=== PATIENT | female | born 1940 | race Caucasian/White ===

== ENCOUNTER → 2019-02-14 08:01 | Outpatient (CLI) | payer MEDICARE, BC ==
[~2019-02-14 08:01] MED LIST: AMBIEN10 MG PO; AZULFIDINE500 MG PO; BAYER CHEWABLE81 MG PO; CALCIUM 250+D T1 TAB PO; FOLIC ACID1 MG PO; METHOTREXATE2.5 MG; PLAVIX75 MG PO; ZANTAC300 MG PO; ZYRTEC10 MG PO
[2019-03-05 12:51] VITALS: BMI 20.5
== END | disposition home or self-care (01) ==
LOC: D.HCCARDIO 08:01
PROVIDERS: ATTEND Internal Medicine Cardiovascular Disease
DX: I20.9 Angina pectoris, unspecified (principal)

== ENCOUNTER 2019-03-05 12:08 | Outpatient (CLI) | payer MEDICARE, BC ==
[~2019-03-05] VITALS: Ht 180.3 cm; Wt 66.8 kg
--- NOTE | ~2019-03-05 | HEMODYNAMI ---
PATIENT:ALDO SIMS MEDICAL RECORD: [id number] : 38 LOCATION:[facility] ADMISSION DATE: 03/05/19 Generatedon:03/05/201915:21 Patient name: ALDO SIMS Patient #: [id number] SSN: D OB: 1940 Date of study: 03/05/2019 Page: Of Hemodynamic Procedure Report Patient Data Patient Demographics Procedure consent was obtained First Name: ALDO Gender: Female Last Name: LEVI : 1940 [facility] Initial: PEDRO PABLO Age: 78 year(s) Patient #: [id number] Race: Unknown Additional ID: [id number] Contact details Address: [facility] [address] State: [place] City: [place] Zip code: [address] Past Medical History Allergies Allergen Reaction Date Comments Reported Penicillins 03/05/2019 Admission Admission Data Admission Date: 03/05/2019 Admission Time: 12:08 Weight (lbs.): 143 Weight (kg.): 64.86 Lab Results Lab Result Date: 03/05/2019 Lab Result Time: 12:45 Biochemistry Name Units Result Min Max BUN mg/dl 18 --(---*)-- 7 18 Creatinine mg/dl 1 --(--*-)-- 0.6 1.3 CBC Name Units Result Min Max Hematocrit % 38.1 *-(----)-- 42 54 Hemoglobin g/dl 12.9 -*(----)-- 13.5 17.5 Procedure Procedure Types Cath Procedure Diagnostic Procedure LHC LH w/Coronaries Sedation Charges Moderate Sedation up to 15 minutes PCI Procedure Coronary Stent Coronary Stent Initial Procedure Description Procedure Date Procedure Date: 03/05/2019 Procedure Start Time: 14:49 Procedure End Time: 15:19 Procedure Staff Name Function Shawn Martinez MD Performing Physician Terrell Kelly RT Monitor Minerva Siegel RT Scrub Tammie Obregon RN Nurse Procedure Data Cath Procedure Fluoroscopy Diagnostic fluoroscopy Total fluoroscopy Time: 3.6 time: 3.6 min min Diagnostic fluoroscopy Total fluoroscopy dose: 331 dose: 331 mGy mGy Contrast Material Contrast Material Type Amount (ml) Isovue 300 74 Entry Location Entry Primary Successful Side Size Upsize Upsize Entry Closure Succes sful Closure Location (Fr) 1 (Fr) 2 (Fr) Remarks Device Remarks Femoral Right 5 Fr 6 Fr Exoseal artery Short Estimated blood loss: 10 ml Diagnostic catheters Device Type Used For End Catheter Placement MULTIPACK JL 4.0 5Fr Procedure catheter MULTIPACK 3DRC 5Fr Procedure catheter DIAGNOSTIC AL1 5Fr Procedure catheter ([id number]) MULTIPACK Pigtail 5 Fr Procedure catheter Procedure Complications No complications Procedure Medications Medication Administration Route Dosage Oxygen etCO2 Nasal cannula 2 l/min Lidocaine 2% added to field 20 Heparin Flush Bag added to field 2 bags (1000units/500ml NS) 0.9% NaCl I.V. 100 ml/hr Versed I.V. 1 mg Fentanyl I.V. 50 mcg Versed I.V. 1 mg Fentanyl I.V. 50 mcg Versed I.V. 1 mg Heparin Bolus I.V. 7000 units Plavix P.O. 600 mg Hemodynamics Rest HGB: 12.9 (g/dl) Heart Rate: 79 (bpm) Pressure Samples Time Site Value (mmHg) Purpose Heart Use Rate(bpm) 14:59 LV 160/-13,9 Snapshot 94 15:00 AO 145/59(96) Pullback 77 15:00 LV 153/-4,9 Pullback 77 Gradients Valve Time Site 1 Site 2 Mean SEP/DFP Peak To Heart Use (mmHg) (sec/min) Peak Rate (mmHg) (bpm) Aortic 15:00 LV AO 6 23 8 77 153/-4,9 145/59(96) Calculations Valve P-P Mean Valve Index Valve Source Name Gradient Area Flow (cm2) Aortic 8 6 8 6 Snapshots Pre Cath Intra NCS Post Cath Vital Signs Time Heart Resp SPO2 etCO2 NIBP (mmHg) Rhythm Pain Sedation Rate (ipm) (%) (mmHg) Status Level (bpm) 14:40:40 81 36 100 0 165/82(120) NSR 0 (11) 10(A) , No pain 14:45:02 79 24 100 33.4 145/77(112) NSR 0 (11) 10(A) , No pain 14:49:24 71 18 100 34.1 131/73(102) NSR 0 (11) 10(A) , No pain 14:54:39 71 14 99 35.6 137/68(110) NSR 0 (11) 10(A) , No pain 14:58:59 73 12 98 37.1 137/73(96) NSR 0 (11) 10(A) , No pain 15:03:17 75 15 98 36.4 130/66(100) NSR 0 (11) 9(A) , No pain 15:07:31 74 11 98 35.6 134/72(115) NSR 0 (11) 9(A) , No pain 15:11:47 73 24 97 41.6 148/78(102) NSR 0 (11) 10(A) , No pain 15:16:10 71 17 96 33.4 154/75(133) NSR 0 (11) 10(A) , No pain Medications Time Medication Route Dose Verified Delivered Reason Notes Effectiveness by by 14:38:59 Oxygen etCO2 2 Shawn Buffie used for Nasal l/min Juan Obregon RN procedure cannula 14:39:06 Lidocaine 2% added 20ml Shawn Shawn for local to vial Juan Martinez MD anesthetic field 14:39:12 Heparin Flush added 2 Shawn Shawn used for Bag to bags Juan Martinez MD procedure (1000units/500ml field NS) 14:39:20 0.9% NaCl I.V. 100 Shawn Buffie Per physician ml/hr Juan Obregon RN 14:48:54 Versed I.V. 1 mg Shawn Buffie for sedation Juan Obregon RN 14:48:59 Fentanyl I.V. 50 Shawn Buffie for sedation mcg Juan Obregon RN 14:53:14 Versed I.V. 1 mg Shawn Buffie for sedation Juan Obregon RN 14:53:17 Fentanyl I.V. 50 Shawn Buffie for sedation mcg Juan Obregon RN 14:58:36 Versed I.V. 1 mg Shawn Buffie for sedation Juan Obregon RN 15:03:44 Heparin Bolus I.V. 7000 Shawn Buffie for verif ied units Juan Obregon RN anticoagulation with dr martinez 15:13:40 Plavix P.O. 600 Shawn Buffie for mg Juan Obregon RN antiplatelet therapy Procedure Log Time Note 14:20:12 Terrell Kelly RT(R) sent for patient. Start room use. 14:28:19 Signed procedure consent form obtained from patient. 14:28:20 Diagnostic Cath status Elective 14::22 Time tracking: Regular hours (M-F 7:00 - 5:00) 14:28:26 Plan of Care:Hemodynamics will remain stable., Cardiac rhythm will remain stable., Comfort level will be maintained., Respiratory function will remain adequate., Patient/ family verbilizes understanding of procedure., Procedure tolerated without complication., Recovers from procedure without complications.. 14:28:34 H&P Date Dictated: 02/04/2019 Within 30 days and on chart., H&P Addendum completed by physician on day of procedure. (MUST COMPLETE FOR ALL OUTPATIENTS). 14:28:39 Patient allergic to Penicillins 14:28:50 Patient Weight : 143 lbs 14:30:36 Patient received from Pre/Post Procedure Room to CCL 1 Alert and oriented. Tansferred to table in Supine position. 14:30:37 Warm blankets applied, and gera hugger turned on for patient comfort. 14:30:37 Correct patient and procedure confirmed by team. 14:30:38 ECG and BP/O2 sat monitors applied to patient. 14:38:59 Oxygen 2 l/min etCO2 Nasal cannula was administered by Tammie Obregon RN; used for procedure; 14:39:06 Lidocaine 2% 20ml vial added to field was administered by Shawn Martinez MD; for local anesthetic; 14:39:12 Heparin Flush Bag (1000units/500ml NS) 2 bags added to field was administered by Shawn Martinez MD; used for procedure; 14:39:20 0.9% NaCl 100 ml/hr I.V. was administered by Tammie Obregon RN; Per physician; 14:39:26 Vital chart was started 14:43:28 Baseline sample Acquired. 14:44:02 Rhythm: sinus rhythm 14:44:41 Full Disclosure recording started 14:44:43 Pre-procedure instructions explained to patient. 14:44:43 Pre-op teaching completed and patient verbalized understanding. 14:44:45 Family in waiting room. 14:44:46 Patient NPO since Midnight. 14:44:48 Is the patient allergic to Iodine/contrast media? No. 14:44:49 Is patient on blood thinner?No 14:44:50 Patient diabetic? No. 14:44:53 Previous problem with sedation/anesthesia? No . 14:44:54 Snore? Yes 14:44:55 Sleep apnea? No 14:44:56 Deviated septum? No 14:44:57 Opens mouth fully? Yes 14:44:58 Sticks out tongue? Yes 14:44:59 Airway obstruction? No ? 14:45:01 Dentures? No ? 14:45:04 Pre procedure: right dorsailis pedis pulse 2+ Normal; easily identifiable; not easily obliterated 14:45:05 Patient pain scale 0/10 ?. 14:45:13 IV patent on arrival in left forearm with 0.9% NaCl at [facility]. 14:46:13 Lab Result : BUN 18 mg/dl 14:46:13 Lab Result : Creatinine 1 mg/dl 14:46:13 Lab Result : Hemoglobin 12.9 g/dl 14:46:13 Lab Result : Hematocrit 38.1 % 14:46:15 Lab results completed and on chart. 14:46:17 Right groin area was prepped with chlora-prep and draped in sterile fashion 14:46:18 Alarms reviewed by R. N. 14:46:19 Sharps counted by scrub and verified by R.N. 14:46:27 Use device set Femoral Dx 14:46:28 ACIST Syringe (06386) opened to sterile field. 14:46:28 Bag Decanter (2002S) opened to sterile field. 14:46:29 Medline Cath Pack ([id number]) opened to sterile field. 14:46:30 ACIST Hand Control (29264) opened to sterile field. 14:46:30 ACIST Manifold (56392) opened to sterile field. 14:46:31 Tegaderm 4 x 4 (1626W) opened to sterile field. 14:46:32 SHEATH 5FR Friendship (RVR969) opened to sterile field. 14:46:33 DIAGNOSTIC Multipack 5Fr catheter set ([id number]) opened to sterile field. 14:46:33 DIAGNOSTIC WIRE .035 260cm J wire (714287) opened to sterile field. 14:46:40 Physician arrived 14:46:44 --------ALL STOP TIME OUT------ 14:46:44 Final Timeout: patient, procedure, and site verified with staff and physician. All members of the team are in agreement. 14:46:49 Right groin site verified by team. 14:46:52 Maximum allowable Isovue 300 dose 300ml. Physician notified. (300ml for normal creatinines. For patients with creatinine of 1.7 or higher multiply weight(kg) x 5 divided by creatinine.) 14:46:55 Fire Safety Assessment: A--An alcohol-based skin anteseptic being used preoperatively., C--Open oxygen or nitrous oxide is being used., D--An ESU, laser, or fiber-optic light is being used. 14:46:58 Physical assessment completed. ASA score P 2 - A patient with mild systemic disease as per Shawn Martinez MD. 14:47:00 Sedation plan: IV Moderate Sedation Medication:Versed, Fentanyl 14:48:54 Versed 1 mg I.V. was administered by Tammie Obregon RN; for sedation; 14:48:59 Fentanyl 50 mcg I.V. was administered by Tammie Obregon RN; for sedation; 14:49:20 Zero performed for pressure channel P1 14:49:55 Procedure started. 14:49:57 Local anesthetic to right femoral artery with Lidocaine 2% by Shawn Martinez MD.INITIAL ACCESS ONLY 14:50:51 A 5 Fr sheath was inserted into the Right Femoral artery 14:51:18 A MULTIPACK JL 4.0 5Fr catheter was advanced over the wire and used for Procedure. 14:51:39 LCA angiography performed. 14:52:51 Catheter exchanged over wire. 14:53:14 Versed 1 mg I.V. was administered by Tammie Obregon RN; for sedation; 14:53:17 Fentanyl 50 mcg I.V. was administered by Tammie Obregon RN; for sedation; 14:53:36 A MULTIPACK 3DRC 5Fr catheter was advanced over the wire and used for Procedure. 14:54:12 Catheter removed. unable to cannulate vessel. 14:55:04 A DIAGNOSTIC AL1 5Fr catheter ([id number]) was advanced over the wire and used for Procedure. 14:55:48 RCA angiography performed. 14:57:08 Catheter exchanged over wire. 14:57:13 A MULTIPACK Pigtail 5 Fr catheter was advanced over the wire and used for Procedure. 14:58:36 Versed 1 mg I.V. was administered by Tammie Obregon RN; for sedation; 14:59:35 LV hemodynamics recorded. 14:59:36 LV gram done using RODRIGUEZ 14:59:39 Injector settings: Ml/sec: 10, Volume: 20, 14:59:46 EF : 55 % 15:00:14 TUBING High Pressure Extension Tubing (Juan) ([id number]) opened to sterile field. 15:00:15 BMW 300cm [place] 2 J wire ([id number]) opened to sterile field. 15:00:17 INFLATOR Merit BasixCompak (ZH4609) opened to sterile field. 15:00:18 SHEATH 6FR Friendship (EPU139) opened to sterile field. 15:01:41 GUIDE 6FR XBLAD 3.5 catheter ([id number]) opened to sterile field. 15:01:47 Catheter removed. 15:02:06 Sheath upsized to a 6 Fr Short. 15:02:10 6 Fr xblad 3.5 guide catheter was inserted over the wire 15:02:35 BMW wire advanced. 15:02:49 Pre PCI Site: [place] pLAD has 75% stenosis. 15:03:44 Heparin Bolus 7000 units I.V. was administered by Tammie Obregon RN; for anticoagulation; verified with dr martinez 15:06:08 Wire advanced across lesion. 15:09:27 Place stent Inflation Number: 1 A INTEGRITY OTW 3.0 X 18 stent ([id number]) was prepped and advanced across the Prox LAD . The stent was deployed at 14 MARISA for 0:10 (min:sec) . 15:09:37 Stent catheter was removed intact over wire. 15:09:38 Wire removed. 15:09:39 Guide catheter removed. 15:09:45 EXOSEAL 6Fr (EX600) opened to sterile field. 15:11:28 Sheath removed intact; hemostasis achieved with Exoseal to the Right Femoral artery. 15:11:30 Procedure ended.(Physican Out) 15:13:40 Plavix 600 mg P.O. was administered by Tammie Obregon RN; for antiplatelet therapy; 15:15:13 Post PCI Site: [place] pLAD has 0% stenosis. 15:15:26 Fluoroscopy time 03.60 minutes. 15:15:30 Fluoroscopy dose: 331 mGy 15:15:30 Flurop Dose total: 331 15:15:35 Contrast amount:Isovue 300 74ml. 15:15:37 Sharps counted by scrub and verified by R.N. 15:15:39 Insertion/operative site no bleeding no hematoma. 15:15:42 Post-op/insertion site Right Femoral artery dressed using a 4 x 4 and Tegaderm. 15:15:47 Post right femoral artery:stable, soft, clean and dry 15:15:49 Post Procedure Pulses reassessed and unchanged 15:15:51 Post-procedure physical assessment completed. ASA score P 2 - A patient with mild systemic disease as per Shawn Martinez MD. 15:15:54 Post procedure rhythm: unchanged. 15:16:04 Estimated blood loss: 10 ml 15:16:05 Post procedure instruction explained to patient.Patient verbalizes understanding. 15:16:06 Patient needs reinforcement of post procedure teaching. 15:16:27 Procedure type changed to Cath procedure, Diagnostic procedure, LHC, LHC w/Coronaries, Sedation Charges, Moderate Sedation up to 15 minutes, PCI procedure, Coronary Stent, Coronary Stent Initial 15:17:23 Procedure and supply charges have been captured, reviewed, submitted and are correct. 15:17:25 Procedure Complication : No complications 15:17:27 Vital chart was stopped 15:17:28 See physician's report for complete and final results. 15:17:44 Report given to PCU. 15:19:02 Patient transfered to Pre/Post Procedure Room with Stretcher. 15:19:03 Procedure ended. 15:19:03 Full Disclosure recording stopped 15:19:07 End room use (Document Last) Intervention Summary Intervention Notes Time ActionType Lesion and Equipment Action# Pressure Duration Attributes Used 15:09:27 Place stent Prox LAD INTEGRITY 1 14 00:10 OTW 3.0 X 18 stent ([id number]) Device Usage Item Name Manufacture Quantity Catalog Hospital Part Current Minimal L ot# / Number Charge Number Stock Stock Serial# Code ACROBERTA Davisist 1 87722 245313 468269 592120 20 Syringe Zebra Imaging (34361) Systems Inc Bag Microtek 1 933400 16386 767433 5 Decanter Medical Inc. () Medline Medline 1 [id number] 451426 16323 594716 5 Cath Pack ([id number]) ACIST Hand Acist 1 31122 830520 660102 866521 5 Control Medical (85343) Systems Inc ACIST Acist 1 88189 518383 344996 543190 5 Manifold Medical (32178) Systems Inc Tegaderm 4 3M 1 1626W 692951 616645 901101 5 x 4 (1626W) SHEATH 5FR Terumo 1 FGQ258 136096 247196 684121 5 Friendship (FNH462) DIAGNOSTIC Cardinal 1 EV8646 369869 40525 583945 30 Multipack Health 5Fr catheter set (PO6448) DIAGNOSTIC St Santi 1 031268 715069 364879 110152 30 WIRE .035 260cm J wire (415359) MULTIPACK Cardinal 1 564727 5 JL 4.0 5Fr Health catheter MULTIPACK Cardinal 1 486160 5 3DRC 5Fr Health catheter DIAGNOSTIC Cardinal 1 [id number] 266119 008524 829815 15 AL1 5Fr Health catheter (924161G) MULTIPACK Cardinal 1 833950 5 Pigtail 5 Health Fr catheter TUBING High Merit 1 [id number] 613110 88916 218991 10 Pressure Medical Extension Tubing (Martinez) (CX3046J) BMW 300cm Pacehco 1 [id number] 202662 523241 981290 5 [place] 2 Vascular J wire (5839459R) INFLATOR Merit 1 JQ9726 143788 136570 514706 15 [facility] Medical BasixCompak (AE5777) SHEATH 6FR Terumo 1 KMB747 781927 850718 606194 40 Friendship (KTQ221) GUIDE 6FR Cardinal 1 [id number] 151762 449335 544868 10 XBLAD 3.5 Health catheter ([id number]) INTEGRITY Medtronic 1 [id number] 456848 627466 831750 1 0 [id number] OTW 3.0 X 18 stent ([id number]) EXOSEAL 6Fr Cardinal 1 EX600 269344 162195 011701 10 (EX600) Health Signature Audit [place] Stage Time Signature Unsigned Intra-Procedure 03/05/2019 Terrell Kelly 3:21:03 PM RT(R) Signatures Monitor : Terrell Kelly RT Signature : Date : Time : [address] [place] [address]
[2019-03-05] MEDS ORDERED: AMBIEN10 MG PO (12:35)
[2019-03-05] MEDS ORDERED: FOLIC ACID1 MG PO (12:35)
[2019-03-05] MEDS ORDERED: METHOTREXATE2.5 MG (12:36)
[2019-03-05] MEDS ORDERED: AZULFIDINE500 MG PO (12:36)
[2019-03-05] MEDS ORDERED: CALCIUM 250+D T1 TAB PO (12:37)
[2019-03-05] MEDS ORDERED: ZANTAC300 MG PO (12:37)
[2019-03-05] MEDS ORDERED: ZYRTEC10 MG PO (12:37)
[2019-03-05 12:50] LABS: BASOPHILS 0.2 % (0-2); EOSINOPHILS 0.5 % (0-7); HEMATOCRIT 38.1 % (36.0-48.0); HEMOGLOBIN 12.9 g/dL (12-16); IMMATURE GRANULOCYTES 0.2 % (0-5); LYMPHOCYTES 17.6 % (15-50); MCH 33.9 pg (26.0-34.0); MCHC 33.9 g/dL (31.0-37.0); MEAN PLATELET VOLUME 10.2 fL (7.4-10.4); MONOCYTES 11.2 % (2-11); NEUTROPHILS 70.3 % (40-80); PLATELET COUNT 254 10x3/uL (130-400); RBC 3.81 10x6/uL (4.00-5.40); RDW 13.3 % (11.5-14.5)
[2019-03-05 12:51] VITALS: BP 174/78; Ht 180.3 cm; Wt 66.8 kg
[2019-03-05 13:08] LABS: ANION GAP 13.5 mmol/L (8-16); CALCIUM 9.3 mg/dL (8.5-10.1); CARBON DIOXIDE 27.6 mmol/L (21.0-32.0); POTASSIUM - SERUM 4.1 mmol/L (3.5-5.1)
--- NOTE | 2019-03-05 15:26 | NUR ---
PT ARRIVED BY STRETCHER. PLACED ON MONITORS. ASSESSMENT COMPLETED. FAMILY AT BEDSIDE. CALL LIGHT WITHIN REACH. PT INSTRUCTED TO KEEP HEAD FLAT ON PILLOW AND RIGHT LEG STRAIGHT.
[2019-03-05] MEDS ORDERED: PLAVIX75 MG PO (15:30)
[2019-03-05] MEDS ORDERED: BAYER CHEWABLE81 MG PO (15:30)
--- NOTE | 2019-03-05 15:40 | NUR ---
RIGHT GROIN DRESSING C/D/I. NO S/S OF HEMATOMA NOTED. VSS. DENIES PAIN/NAUSEA AT THIS TIME.
--- NOTE | 2019-03-05 16:10 | NUR ---
PT RESTING COMFORATABLY. VSS. RIGHT GROIN DRESSING C/D/I. NO S/S OF HEMATOMA NOTED. RIGHT PEDAL PULSE PALPABLE. FAMILY AT BEDSIDE.
--- NOTE | 2019-03-05 16:40 | NUR ---
RIGHT GROIN DRESSING C/D/I. NO S/S OF HEMATOMA NOTED. VSS. CALL LIGHT WITHIN REACH. NO NEEDS AT THIS TIME.
--- NOTE | 2019-03-05 17:10 | NUR ---
PT RESTING COMFORTABLY. VSS. RIGHT GROIN DRESSING C/D/I. NO S/S OF HEMATOMA NOTED. CALL LIGHT WITHIN REACH.
--- NOTE | 2019-03-05 18:05 | NUR ---
PT C/O BACK PAIN AND RIGHT GROIN PAIN. WILL GIVE TYLENOL. VSS. NO BLEEDING/HEMATOMA NOTED TO RIGHT GROIN. RIGHT PEDAL PULSE PALPABLE. WILL CONTINUE TO MONITOR.
--- NOTE | 2019-03-05 18:17 | NUR ---
RIGHT GROIN DRESSING C/D/I. NO S/S OF HEMATOMA NOTED. PT'S HEAD OF BED INC TO 30 DEGREES. TOLERATED WELL. WILL CONTINUE TO MONITOR. VSS.
--- NOTE | 2019-03-05 18:45 | NUR ---
PT C/O NAUSEA AND VOMITED APPROX 50CC. GIVEN ZOFRAN ORDERED. BP JUMPED UP TO 210/88. CLONIDINE .1 GIVEN. WILL MONITOR PT'S VITAL SIGNS AND ENSURE PT'S BP TENDING DOWN. RIGHT GROIN DRESSING C/D/I. NO S/S OF HEMATOMA. NO EKG CHANGES. PT DENIES ANY CHEST PAIN AT THIS TIME. WILL CONTINUE TO MONITOR.
--- NOTE | 2019-03-05 19:26 | NUR ---
PT'S BP TRENDING DOWN. 184/76 CURRENTLY. DENIES NAUSEA. RIGHT GROIN DRESSING C/D/I. NO S/S OF HEMATOMA NOTED. PT'S HEAD OF BED AT 30 DEGREES. WILL CONTINUE TO MONITOR.
--- NOTE | 2019-03-05 19:40 | NUR ---
PT'S BP 193/65. UP TO RESTROOM BY WHEELCHAIR. VOIDED WITHOUT DIFFICULTY. BACK TO ROOM. SITTING UP IN CHAIR. RIGHT GROIN DRESSING C/D/I. NO S/S OF HEMATOMA NOTED. RIGHT PEDAL PULSE PALPABLE.
--- NOTE | 2019-03-05 19:47 | NUR ---
BP 158/89. HR 85. EATING CRACKERS AND SIPPING WATER.
--- NOTE | 2019-03-05 19:50 | NUR ---
LEFT ARM PIV D/C'D WITH CATH TIP INTACT. PT TOLERATED WELL. RIGHT GROIN DRESSING C/D/I. NO S/S OF HEMATOMA NOTED. DISCUSSED DISCHARGE INSTRUCTIONS WITH PT AND PT'S FAMILY. THEY VOICED UNDERSTANDING. THEY REPORT THAT THEY ARE COMFORTABLE GOING HOME. I INFORMED THEM THAT IF THEY WERE CONCERNED IN ANY WAY OR SHE STARTED TO FELL BAD ONCE SHE WAS HOME, TO CALL AN AMBULANCE. SHE DENIES NAUSEA AT THIS TIME. NO CHANGES IN VITAL SIGNS. DAUGHTER AT BEDSIDE TO ASSIST IN GETTING HER DRESSED.
--- NOTE | 2019-03-05 20:00 | NUR ---
PT TAKEN OUT TO VEHICLE BY WHEELCHAIR. NO S/S OF DISTRESS NOTED. ALL BELONGINGS AND PAPERWORK IN HAND.
== END 2019-03-05 20:00 | disposition home or self-care (01) ==
LOC: D.CATH 12:08
PROVIDERS: ATTEND Internal Medicine Cardiovascular Disease
DX: I25.119 Atherosclerotic heart disease of native coronary artery with unspecified angina pectoris (principal); Z01.812 Encounter for preprocedural laboratory examination

== ENCOUNTER → 2019-09-25 11:47 | Outpatient (CLI) | payer MEDICARE, BC ==
[2019-03-05 12:51] VITALS: BMI 20.5
== END | disposition home or self-care (01) ==
LOC: D.CT 11:47
PROVIDERS: ATTEND Family Medicine
DX: G45.9 Transient cerebral ischemic attack, unspecified (principal)

== ENCOUNTER → 2020-07-01 08:29 | Outpatient (CLI) | payer MEDICARE, BC ==
[2019-03-05 12:51] VITALS: BMI 20.5
== END | disposition home or self-care (01) ==
LOC: D.HCCECHO 08:29
PROVIDERS: ATTEND Internal Medicine Cardiovascular Disease
DX: I25.10 Atherosclerotic heart disease of native coronary artery without angina pectoris (principal)